=== PATIENT | female | born 1990 | race Caucasian/White ===

== ENCOUNTER → 2017-02-22 | Outpatient (CLI) | payer OTHER ==
[~2017-02-22] VITALS: Ht 165.1 cm; Wt 71.0 kg
[~2017-02-22] MED LIST: MOTRIN800 MG PO; NUVARING VAGIN1 EACH PO; PEN-VEE K,VEET500 MG PO; PERCOCET 5/31 TABLET PO; PRENATAL TABLE1 EAC3 PO; SUBUTEX; TRAMADOL HCL50 MG PO; ULTRAM50 MG PO; VYVANSE20 MG PO
[2017-02-22 12:00] VITALS: BP 120/73
== END | disposition home or self-care (01) ==
LOC: IVINF 11:30
DX: Z31.82 Encounter for Rh incompatibility status (principal)
CPT/HCPCS: 96372; J2790

== ENCOUNTER 2017-03-11 22:13 | Emergency (ER) | payer OTHER ==
[~2017-03-11] VITALS: Ht 167.6 cm; Wt 73.5 kg
[2017-03-11 22:47] LABS: HEMATOCRIT 30.2 % (36.0-46.0); MCH 29.4 PG (29.0-34.0); MCHC 33.8 G/DL (30.0-36.0); MEAN PLAT.VOLUME 10.5 uM^3 (9.5-12.4); PLATELET COUNT 168 K/uL (156-360); RBC DIS.WIDTH-CV 12.3 % (11.8-14.6); RBC DIS.WIDTH-SD 39.1 % (39-53); RED BLOOD COUNT 3.47 M/uL (3.80-5.20); WHITE BLOOD COUNT 9.9 K/uL (4.1-10.2)
[2017-03-11 23:00] LABS: CHLORIDE 106 mEq/L (99-109); POTASSIUM 3.7 mEq/L (3.7-5.4); SODIUM 136 mEq/L (136-147)
[2017-03-11 23:02] LABS: GLUCOSE 91 mg/dL (70-99)
[2017-03-11 23:03] LABS: ANION GAP 7 MEQ/L (2-14)
[2017-03-11 23:04] LABS: TOTAL BILIRUBIN 0.2 mg/dL (0.0-1.0)
[2017-03-11 23:06] LABS: ALKALINE PHOSPHATASE 76 IU/L (3-129); GFR ESTIMATE (CALCULATED) > 59 mL/min/
[2017-03-11 23:07] LABS: UREA NITROGEN (BUN) 8 mg/dL (9-23)
[2017-03-11 23:08] LABS: ADD MIUA? NO; BILIRUBIN NEGATIVE; BLOOD NEGATIVE; COLOR YELLOW ((YELLOW)); GLUCOSE (STRIP) NEGATIVE; KETONES NEGATIVE; LEUKOCYTES NEGATIVE; NITRITE NEGATIVE; PROTEIN (STRIP) NEGATIVE; SPECIFIC GRAVITY 1.028 (1.000-1.030); UCUL ADDED? NO; UROBILINOGEN 0.2 MG/DL (0.2-1.0)
[2017-03-11 23:09] LABS: LIPASE 8 U/L (1.0-51.0)
[2017-03-12 00:03] VITALS: BP 117/72
== END 2017-03-12 00:04 | disposition home or self-care (01) ==
LOC: EXP 22:13 → EME 22:13 → EXP 03-12 00:04
PROVIDERS: Physician Assistant
DX: O26.893 Other specified pregnancy related conditions, third trimester (principal); R10.11 Right upper quadrant pain; O26.613 Liver and biliary tract disorders in pregnancy, third trimester; K80.50 Calculus of bile duct without cholangitis or cholecystitis without obstruction; M54.9 Dorsalgia, unspecified; R11.0 Nausea; Z87.891 Personal history of nicotine dependence; Z3A.30 30 weeks gestation of pregnancy
CPT/HCPCS: 76705; 80053; 81003; 83690; 85027; 99281; 99283

== ENCOUNTER 2017-05-02 03:14 | Outpatient (CLI) | payer OTHER ==
[2017-05-02 03:50] VITALS: BP 124/76
[2017-05-02 05:04] VITALS: BP 126/83
[2017-05-03] MEDS ORDERED: FEOSOL325 MG PO (20:29)
== END 2017-05-02 14:00 | disposition home or self-care (01) ==
LOC: LDRP-OP 03:14 → 2WEST 03:15
DX: O47.1 False labor at or after 37 completed weeks of gestation (principal); Z3A.38 38 weeks gestation of pregnancy
CPT/HCPCS: 59025; G0378

== ENCOUNTER 2017-05-03 17:50 | Outpatient (CLI) | payer OTHER ==
[~2017-05-03] VITALS: Ht 167.6 cm; Wt 77.3 kg
[2017-05-03 18:20] VITALS: BP 131/94
[2017-05-03 18:34] VITALS: BP 130/84
[2017-05-03 19:29] VITALS: BP 132/80
[2017-05-03 19:54] LABS: EOSINOPHIL (%) 0.4 % (0-5); EOSINOPHIL COUNT 0.1 K/uL (0-0.3); HEMATOCRIT 29.5 % (36.0-46.0); IMMATURE GRANULOCYTE (%) 0.9 % (0.0-0.7); IMMATURE GRANULOCYTE COUNT 0.1 K/uL; INSTRUMENT ABS NEUTROPHIL CT 9.9 K/uL; LYMPHOCYTE COUNT 1.5 K/uL (1.0-2.8); MCH 28.7 PG (29.0-34.0); MCHC 33.6 G/DL (30.0-36.0); MCV 85.5 FL (83-99); MONOCYTE (%) 5.2 % (3-12); MONOCYTE COUNT 0.6 K/uL (0-0.8); NEUTROPHIL (%) 80.8 % (45-76); NEUTROPHIL COUNT 9.9 K/uL (1.8-6.4); PLATELET COUNT 162 K/uL (156-360); RBC DIS.WIDTH-CV 12.3 % (11.8-14.6); RBC DIS.WIDTH-SD 37.9 % (39-53); RED BLOOD COUNT 3.45 M/uL (3.80-5.20); WHITE BLOOD COUNT 12.3 K/uL (4.1-10.2)
[2017-05-03] MEDS ORDERED: FEOSOL325 MG PO (20:29)
[2017-05-03 21:16] VITALS: BP 120/75
[2017-05-03 22:08] LABS: ADD MIUA? YES; BILIRUBIN NEGATIVE; BLOOD NEGATIVE; COLOR STRAW ((YELLOW)); GLUCOSE (STRIP) NEGATIVE; KETONES NEGATIVE; LEUKOCYTES SMALL; NITRITE NEGATIVE; PROTEIN (STRIP) NEGATIVE; SPECIFIC GRAVITY 1.003 (1.000-1.030)
[2017-05-03 22:44] LABS: CASTS NONE SEEN /LPF; EPITHELIAL CELLS 1+ /HPF; MUCUS NONE SEEN /LPF
[2017-05-03 22:45] LABS: BACTERIA RARE /HPF; RED BLOOD CELLS NONE SEEN /HPF (0-5); UCUL ADDED? NO; WHITE BLOOD CELLS RARE /HPF (0-5)
[2017-05-03 22:47] LABS: COCAINE NEGATIVE (150 ng/mL); METHAMPHETAMINE NEGATIVE (500 ng/mL); OPIATES (MORPHINE) NEGATIVE (100 ng/mL); PHENCYCLIDINE NEGATIVE (25 ng/mL); THC CANNABINOIDS NEGATIVE (50 ng/mL)
[2017-05-03 22:48] LABS: AMPHETAMINE NEGATIVE (500 ng/mL); BARBITURATES NEGATIVE (200 ng/mL); BENZODIAZEPINES NEGATIVE (150 ng/mL); INTERNAL CONTROLS VALID? YES; METHADONE NEGATIVE (200 ng/mL); OXYCODONE NEGATIVE (100 ng/mL); PROPOXYPHENE NEGATIVE (300 ng/mL); TRICYCLIC ANTIDEPRESSANTS NEGATIVE (300 ng/mL)
== END 2017-05-03 22:45 | disposition home or self-care (01) ==
LOC: LDRP-OP 17:50 → 2WEST 17:56 → LDRP-OP 06-16 14:51
PROVIDERS: Advanced Practice Midwife
DX: O76 Abnormality in fetal heart rate and rhythm complicating labor and delivery (principal); O32.1XX0 Maternal care for breech presentation, not applicable or unspecified; Z3A.38 38 weeks gestation of pregnancy
CPT/HCPCS: 59025; 81003; 85025; 86870; 86900; 86901; G0378; J0571; J7030

== ENCOUNTER 2017-05-15 15:22 | Inpatient (IN) | payer OTHER ==
[~2017-05-15] VITALS: Ht 167.6 cm; Wt 78.0 kg
[2017-05-15] VITALS (20 sets, daily range): BP systolic 96–151; BP diastolic 58–90
[~2017-05-15 15:22] MED LIST changes: +FEOSOL325 MG PO; -SUBUTEX; +SUBUTEX PO
[2017-05-15 17:59] LABS: EOSINOPHIL (%) 1.3 % (0-5); EOSINOPHIL COUNT 0.1 K/uL (0-0.3); HEMATOCRIT 27.9 % (36.0-46.0); IMMATURE GRANULOCYTE (%) 0.7 % (0.0-0.7); IMMATURE GRANULOCYTE COUNT 0.1 K/uL; INSTRUMENT ABS NEUTROPHIL CT 7.9 K/uL; LYMPHOCYTE COUNT 1.7 K/uL (1.0-2.8); MCH 30.1 PG (29.0-34.0); MCHC 34.4 G/DL (30.0-36.0); MCV 87.5 FL (83-99); MEAN PLAT.VOLUME 11.1 uM^3 (9.5-12.4); MONOCYTE (%) 6.1 % (3-12); MONOCYTE COUNT 0.6 K/uL (0-0.8); NEUTROPHIL (%) 75.6 % (45-76); NEUTROPHIL COUNT 7.9 K/uL (1.8-6.4); PLATELET COUNT 140 K/uL (156-360); RBC DIS.WIDTH-CV 13.2 % (11.8-14.6); RED BLOOD COUNT 3.19 M/uL (3.80-5.20); WHITE BLOOD COUNT 10.4 K/uL (4.1-10.2)
[2017-05-15 19:31] LABS: BARBITUATES QUANT VALUE 0 NG/ML; BENZODIAZEPINES QUANT VALUE 0 NG/ML; BENZODIAZEPINES, URINE SCREEN Negative (200 ng/mL); MARIJUANA QUANT VALUE 0 NG/ML; OPIATES QUANTITATIVE VALUE 0 NG/ML; PHENCYCLIDINE QUANT VALUE 0 NG/ML
[2017-05-16 00:11] VITALS: BP 119/67
[2017-05-16 00:49] VITALS: BP 129/75
[2017-05-16 01:38] VITALS: BP 139/70
[2017-05-16 07:35] VITALS: BP 116/71
[2017-05-16 07:47] LABS: EOSINOPHIL (%) 1.5 % (0-5); EOSINOPHIL COUNT 0.2 K/uL (0-0.3); IMMATURE GRANULOCYTE (%) 0.8 % (0.0-0.7); IMMATURE GRANULOCYTE COUNT 0.1 K/uL; INSTRUMENT ABS NEUTROPHIL CT 10.3 K/uL; LYMPHOCYTE COUNT 1.8 K/uL (1.0-2.8); MCH 29.9 PG (29.0-34.0); MCHC 34.1 G/DL (30.0-36.0); MCV 87.7 FL (83-99); MEAN PLAT.VOLUME 11.4 uM^3 (9.5-12.4); MONOCYTE (%) 5.3 % (3-12); MONOCYTE COUNT 0.7 K/uL (0-0.8); NEUTROPHIL (%) 78.5 % (45-76); NEUTROPHIL COUNT 10.3 K/uL (1.8-6.4); PLATELET COUNT 136 K/uL (156-360); RBC DIS.WIDTH-CV 13.4 % (11.8-14.6); RBC DIS.WIDTH-SD 41.2 % (39-53); RED BLOOD COUNT 3.08 M/uL (3.80-5.20); WHITE BLOOD COUNT 13.1 K/uL (4.1-10.2)
[2017-05-16 15:35] VITALS: BP 117/78
[2017-05-16 23:25] VITALS: BP 125/78
[2017-05-17 07:20] VITALS: BP 109/75
[2017-05-17] MEDS ORDERED: IBUPROFEN800 MG PO (11:52)
[2017-05-17 15:12] VITALS: BP 137/76
== END 2017-05-17 17:00 | disposition home or self-care (01) | DRG 775 ==
LOC: LDRP-OP 15:22 → 2WEST 15:23 → LDRP-OP 06-16 23:15
PROVIDERS: Advanced Practice Midwife
DX: O70.0 First degree perineal laceration during delivery (principal); O99.02 Anemia complicating childbirth; D50.9 Iron deficiency anemia, unspecified; D62 Acute posthemorrhagic anemia; O34.219 Maternal care for unspecified type scar from previous cesarean delivery; O99.324 Drug use complicating childbirth; F11.20 Opioid dependence, uncomplicated; O99.344 Other mental disorders complicating childbirth; F90.9 Attention-deficit hyperactivity disorder, unspecified type; Z37.0 Single live birth; Z3A.39 39 weeks gestation of pregnancy
CPT/HCPCS: 80306 90; 85025; 86870; 86900; 86901; 86905; 86920; C1755; J0571; J3010; J7120

== ENCOUNTER 2017-12-19 19:37 | Emergency (ER) | payer OTHER ==
[~2017-12-19] VITALS: Ht 167.6 cm; Wt 73.0 kg
[~2017-12-19 19:37] MED LIST changes: +IBUPROFEN800 MG PO
[2017-12-19 21:31] LABS: HEMATOCRIT 32.6 % (36.0-46.0); HEMOGLOBIN 11.6 G/DL (11.9-15.5); MCH 30.9 PG (29.0-34.0); MCHC 35.6 G/DL (30.0-36.0); MCV 86.7 FL (83-99); PLATELET COUNT 229 K/uL (156-360); RBC DIS.WIDTH-CV 12.2 % (11.8-14.6); RED BLOOD COUNT 3.76 M/uL (3.80-5.20); WHITE BLOOD COUNT 12.8 K/uL (4.1-10.2)
[2017-12-19 21:40] LABS: ALBUMIN 4.1 g/dL (3.2-4.8); CHLORIDE 113 mEq/L (99-109); POTASSIUM 3.9 mEq/L (3.7-5.4); SODIUM 143 mEq/L (136-147)
[2017-12-19 21:42] LABS: GLUCOSE 100 mg/dL (70-99); TOTAL PROTEIN 6.9 g/dL (6.4-8.3)
[2017-12-19 21:44] LABS: TOTAL BILIRUBIN 0.2 mg/dL (0.0-1.0)
[2017-12-19 21:46] LABS: ALKALINE PHOSPHATASE 55 IU/L (3-129); CREATININE 0.6 mg/dL (0.6-1.3); GFR ESTIMATE (CALCULATED) > 59 mL/min/
[2017-12-19 21:47] LABS: UREA NITROGEN (BUN) 12 mg/dL (9-23)
[2017-12-19 21:48] LABS: AST (GOT) 15 IU/L (2-34)
[2017-12-19 21:49] LABS: ALT (GPT) 17 IU/L (3-49)
[2017-12-19] MEDS ORDERED: FLEXERIL10 MG PO (21:58)
[2017-12-19] MEDS ORDERED: NORCO 5/3251 TABLET PO (21:58)
[2017-12-19 22:15] VITALS: BP 135/93
== END 2017-12-19 22:16 | disposition home or self-care (01) ==
LOC: EME 19:37
PROVIDERS: Emergency Medicine Emergency Medical Services
PROC: 0HQ0XZZ Repair Scalp Skin, External Approach (ICD-10-PCS; principal; 2017-12-19)
DX: S01.01XA Laceration without foreign body of scalp, initial encounter (principal); S20.222A Contusion of left back wall of thorax, initial encounter; S20.219A Contusion of unspecified front wall of thorax, initial encounter; V03.90XA Pedestrian on foot injured in collision with car, pick-up truck or van, unspecified whether traffic or nontraffic accident, initial encounter; Y93.01 Activity, walking, marching and hiking; Z33.1 Pregnant state, incidental; R68.84 Jaw pain; F17.200 Nicotine dependence, unspecified, uncomplicated; I10 Essential (primary) hypertension; Z88.8 Allergy status to other drugs, medicaments and biological substances
CPT/HCPCS: 70450; 70486; 72125; 80053; 84702; 85027; 99281; 99284; J2270

== ENCOUNTER → 2018-05-08 | Outpatient (CLI) | payer OTHER ==
[~2018-05-08] MED LIST changes: +FLEXERIL10 MG PO; +NORCO 5/3251 TABLET PO
[2018-05-08 09:49] VITALS: BP 135/83
== END | disposition home or self-care (01) ==
LOC: IVINF 09:30
DX: Z34.80 Encounter for supervision of other normal pregnancy, unspecified trimester (principal); Z31.82 Encounter for Rh incompatibility status; Z67.91 Unspecified blood type, Rh negative; Z3A.00 Weeks of gestation of pregnancy not specified
CPT/HCPCS: 96372; J2790

== ENCOUNTER 2018-05-21 02:41 | Inpatient (IN) | payer OTHER ==
[2018-05-21] VITALS (31 sets, daily range): BP systolic 106–154; BP diastolic 61–107
[~2018-05-21] VITALS: Ht 167.6 cm; Wt 79.0 kg
[2018-05-21 05:40] LABS: ALBUMIN 3.4 g/dL (3.2-4.8); BASOPHIL (%) 0.2 % (0-1); CHLORIDE 111 mEq/L (99-109); EOSINOPHIL (%) 0.3 % (0-5); HEMATOCRIT 30.3 % (36.0-46.0); HEMOGLOBIN 10.6 G/DL (11.9-15.5); IMMATURE GRANULOCYTE (%) 1.1 % (0.0-0.7); LYMPHOCYTE (%) 16.9 % (15-42); LYMPHOCYTE COUNT 1.8 K/uL (1.0-2.8); MCH 30.3 PG (29.0-34.0); MCV 86.6 FL (83-99); MONOCYTE (%) 6.1 % (3-12); MONOCYTE COUNT 0.7 K/uL (0-0.8); NEUTROPHIL (%) 75.4 % (45-76); PLATELET COUNT 146 K/uL (156-360); POTASSIUM 3.7 mEq/L (3.7-5.4); RBC DIS.WIDTH-CV 12.5 % (11.8-14.6); RBC DIS.WIDTH-SD 38.8 % (39-53); SODIUM 140 mEq/L (136-147); WHITE BLOOD COUNT 10.6 K/uL (4.1-10.2)
[2018-05-21 05:42] LABS: GLUCOSE 88 mg/dL (70-99); TOTAL PROTEIN 5.9 g/dL (6.4-8.3)
[2018-05-21 05:44] LABS: TOTAL BILIRUBIN 0.5 mg/dL (0.0-1.0)
[2018-05-21 05:46] LABS: ALKALINE PHOSPHATASE 153 IU/L (3-129); CREATININE 0.6 mg/dL (0.6-1.3); GFR ESTIMATE (CALCULATED) > 59 mL/min/
[2018-05-21 05:47] LABS: AST (GOT) 18 IU/L (2-34); UREA NITROGEN (BUN) 6 mg/dL (9-23)
[2018-05-21 05:49] LABS: ALT (GPT) 10 IU/L (3-49); URIC ACID 4.4 mg/dL (3.1-9.2)
[2018-05-21 06:07] LABS: AMPHETAMINE NEGATIVE (500 ng/mL); BARBITURATES NEGATIVE (200 ng/mL); BENZODIAZEPINES NEGATIVE (150 ng/mL); BUPRENORPHINE NEGATIVE (10 ng/mL); COCAINE NEGATIVE (150 ng/mL); METHADONE NEGATIVE (200 ng/mL); METHAMPHETAMINE NEGATIVE (500 ng/mL); OPIATES (MORPHINE) NEGATIVE (100 ng/mL); OXYCODONE NEGATIVE (100 ng/mL); PHENCYCLIDINE NEGATIVE (25 ng/mL); PROPOXYPHENE NEGATIVE (300 ng/mL); THC CANNABINOIDS NEGATIVE (50 ng/mL); TRICYCLIC ANTIDEPRESSANTS NEGATIVE (300 ng/mL)
[2018-05-21 06:55] LABS: LACTATE DEHYDROGENASE 163 IU/L (20-246)
[2018-05-21 07:57] LABS: UR CREATININE CONCENTRATION 46.8 MG/DL
[2018-05-22 07:10] VITALS: BP 142/105
[2018-05-22 07:23] LABS: BASOPHIL (%) 0.2 % (0-1); EOSINOPHIL (%) 0.7 % (0-5); EOSINOPHIL COUNT 0.1 K/uL (0-0.3); HEMATOCRIT 26.3 % (36.0-46.0); HEMOGLOBIN 8.9 G/DL (11.9-15.5); IMMATURE GRANULOCYTE (%) 0.8 % (0.0-0.7); MCH 29.9 PG (29.0-34.0); MCHC 33.8 G/DL (30.0-36.0); MCV 88.3 FL (83-99); MONOCYTE (%) 6.8 % (3-12); MONOCYTE COUNT 0.8 K/uL (0-0.8); NEUTROPHIL (%) 74.5 % (45-76); NEUTROPHIL COUNT 8.8 K/uL (1.8-6.4); PLATELET COUNT 107 K/uL (156-360); RBC DIS.WIDTH-CV 12.8 % (11.8-14.6); RBC DIS.WIDTH-SD 40.2 % (39-53); RED BLOOD COUNT 2.98 M/uL (3.80-5.20); WHITE BLOOD COUNT 11.8 K/uL (4.1-10.2)
[2018-05-22 10:20] LABS: ALBUMIN 2.8 G/DL (3.2-4.8); ALKALINE PHOSPHATASE 131 IU/L (3-129); ALT (GPT) 11 IU/L (3-49); AST (GOT) 16 IU/L (2-34); CHLORIDE 108 MEQ/L (99-109); CREATININE 0.6 MG/DL (0.6-1.3); GFR ESTIMATE (CALCULATED) > 59 mL/min/; GLUCOSE 78 mg/dL (70-99); LACTATE DEHYDROGENASE 199 IU/L (20-246); POTASSIUM 3.3 MEQ/L (3.7-5.4); SODIUM 139 MEQ/L (136-147); TOTAL BILIRUBIN 0.3 MG/DL (0.0-1.0); TOTAL PROTEIN 4.8 G/DL (6.4-8.3); UREA NITROGEN (BUN) 5 mg/dL (9-23)
[2018-05-22 10:36] VITALS: BP 150/82
[2018-05-22 14:27] VITALS: BP 144/88
[2018-05-22 19:40] VITALS: BP 134/88
[2018-05-22 20:43] VITALS: BP 129/80
[2018-05-22 23:07] VITALS: BP 121/78
[2018-05-23 03:00] VITALS: BP 113/68
[2018-05-23] MEDS ORDERED: IBUPROFEN800 MG PO (09:28)
[2018-05-23] MEDS ORDERED: CHROMAGEN,1 CAPSULE PO (09:29)
[2018-05-23] MEDS ORDERED: NIFEDIPINE ER30 MG PO (09:29)
== END 2018-05-23 13:12 | disposition home or self-care (01) | DRG 775 ==
LOC: LDRP-OP 02:41 → 2WEST 02:42
PROVIDERS: Advanced Practice Midwife
PROC: 10E0XZZ Delivery of Products of Conception, External Approach (ICD-10-PCS; principal; 2018-05-21)
PROC: 3E0S3BZ Introduction of Anesthetic Agent into Epidural Space, Percutaneous Approach (ICD-10-PCS; 2018-05-21)
PROC: 00HU33Z Insertion of Infusion Device into Spinal Canal, Percutaneous Approach (ICD-10-PCS; 2018-05-21)
DX: O77.0 Labor and delivery complicated by meconium in amniotic fluid (principal); D62 Acute posthemorrhagic anemia; F33.9 Major depressive disorder, recurrent, unspecified; O99.12 Other diseases of the blood and blood-forming organs and certain disorders involving the immune mechanism complicating childbirth; O34.211 Maternal care for low transverse scar from previous cesarean delivery; D69.6 Thrombocytopenia, unspecified; O99.02 Anemia complicating childbirth; O99.334 Smoking (tobacco) complicating childbirth; Z37.0 Single live birth; Z3A.40 40 weeks gestation of pregnancy; O99.344 Other mental disorders complicating childbirth; F90.9 Attention-deficit hyperactivity disorder, unspecified type; F41.9 Anxiety disorder, unspecified; D50.9 Iron deficiency anemia, unspecified; F17.210 Nicotine dependence, cigarettes, uncomplicated; O13.4 Gestational [pregnancy-induced] hypertension without significant proteinuria, complicating childbirth; O12.04 Gestational edema, complicating childbirth; Z80.41 Family history of malignant neoplasm of ovary
CPT/HCPCS: 80053; 82570; 83030; 83036; 83615; 84156; 84550; 85025; 85610; 85730; 86850; 86870; 86900; 86901; 86920; C1755; J0595; J1050; J2790; J3010; J7120; Q0169

== ENCOUNTER 2018-05-25 16:53 | Emergency (ER) | payer OTHER ==
[~2018-05-25] VITALS: Ht 167.6 cm; Wt 73.3 kg
[~2018-05-25 16:53] MED LIST changes: +CHROMAGEN,1 CAPSULE PO; +NIFEDIPINE ER30 MG PO
[2018-05-25 17:33] LABS: HEMATOCRIT 31.7 % (36.0-46.0); MCH 30.6 PG (29.0-34.0); MCV 87.3 FL (83-99); RBC DIS.WIDTH-CV 12.7 % (11.8-14.6); RBC DIS.WIDTH-SD 40.1 % (39-53)
[2018-05-25 17:39] LABS: ALBUMIN 3.8 g/dL (3.2-4.8); CHLORIDE 106 mEq/L (99-109); POTASSIUM 3.8 mEq/L (3.7-5.4); SODIUM 139 mEq/L (136-147)
[2018-05-25 17:41] LABS: PTT 27.1 SEC (25-37)
[2018-05-25 17:41] LABS: GLUCOSE 86 mg/dL (70-99)
[2018-05-25 17:43] LABS: TOTAL BILIRUBIN 0.3 mg/dL (0.0-1.0); TOTAL PROTEIN 7.6 g/dL (6.4-8.3)
[2018-05-25 17:45] LABS: ALKALINE PHOSPHATASE 159 IU/L (3-129); CREATININE 0.7 mg/dL (0.6-1.3); GFR ESTIMATE (CALCULATED) > 59 mL/min/
[2018-05-25 17:46] LABS: UREA NITROGEN (BUN) 8 mg/dL (9-23)
[2018-05-25 17:47] LABS: AST (GOT) 26 IU/L (2-34); DIRECT BILIRUBIN 0.1 mg/dL (0.0-0.3)
[2018-05-25 17:51] LABS: ALT (GPT) 23 IU/L (3-49)
[2018-05-25 18:29] VITALS: BP 135/97
[2018-05-25 18:29] LABS: HEMOGLOBIN 11.1 G/DL (11.9-15.5); PLATELET COUNT 220 K/uL (156-360); RED BLOOD COUNT 3.63 M/uL (3.80-5.20)
== END 2018-05-25 18:30 | disposition home or self-care (01) ==
LOC: EME 16:53
PROVIDERS: Nurse Practitioner Family
DX: O14.95 Unspecified pre-eclampsia, complicating the puerperium (principal); R51 Headache; R11.0 Nausea; R42 Dizziness and giddiness; H53.2 Diplopia; Z87.891 Personal history of nicotine dependence
CPT/HCPCS: 80048; 80076; 81003; 82570; 84156; 85027; 85610; 85730; 99281; 99284; J1885